=== PATIENT | female | born 1990 | race Caucasian/White ===

== ENCOUNTER 2016-05-02 23:46 | Emergency (ER) | payer SELFPAY ==
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
== END 2016-05-03 00:55 | disposition home or self-care (01) ==
LOC: ER 23:46
DX: S00.81XA Abrasion of other part of head, initial encounter (principal); X99.0XXA Assault by sharp glass, initial encounter; Y92.410 Unspecified street and highway as the place of occurrence of the external cause
CPT/HCPCS: 99283

== ENCOUNTER 2016-05-18 17:55 | Inpatient (IN) | payer MEDICAID ==
[2016-05-18] MEDS ORDERED: HYDROMORPHONE HCL 1 MG/ML CPJ IVP ONE (19:45)
[2016-05-18] MEDS ORDERED: ONDANSETRON HCL IV 4 MG/2 ML VIAL IVP ONE (19:45)
--- NOTE | 2016-05-18 20:03 | Emergency Department Record ---
History of Present Illness - General Chief complaint: Abscess Stated complaint: FACE SWOLLEN/TONGUE SWELLING Time Seen by Provider: 05/18/16 19:39 Source: Patient Mode of Arrival: Ambulatory Limitations: No limitations - History of Present Illness Initial comments: pt states she has some bad teeth and has been chewing on her cheek and now her cheek has swelling and is tender. complaint: Abscess/boil Onset/Timin -: Hour(s) Location: Face Severity: Mild Severity scale (1-10): >10 Consistency: Constant Improves with: Other Worsens with: Other Context: Other Associated symptoms: Denies other symptoms Treatments Prior to Arrival: NSAID - Related Data Home Medications Medication Instructions Recorded Confirmed Last Taken No Home Med [NO HOME MEDS] 05/02/16 05/02/16 Unknown Allergies Allergy/AdvReac Type Severity Reaction Status Date / Time No Known Drug Allergies Allergy Verified 08/04/13 22:14 Travel Screening - Travel/Exposure Within Last 30 Days Have you traveled within the last 30 days?: No - Travel/Exposure Within Last Year Have you traveled outside the [place] in the last year?: No - Additonal Travel Details Have you been exposed to anyone with a communicable illness?: No - Travel Symptoms Symptom Screening: None Review of Systems Reviewed: No additional complaints except as noted below Constitutional: Reports: As per HPI. Denies: Chills, Fever, Malaise, Night sweats, Weakness, Weight change Eyes: Reports: As per HPI. Denies: Eye discharge, Eye pain, Photophobia, Vision change ENT: Reports: As per HPI. Denies: Congestion, Dental pain, Ear pain, Epistaxis , Hearing loss, Throat pain Respiratory: Reports: As per HPI. Denies: Cough, Dyspnea, Hemoptysis, Stridor, Wheezes Cardiovascular: Reports: As per HPI. Denies: Arrhythmia, Chest pain, Dyspnea on exertion, Edema, Murmurs, Orthopnea, Palpitations, Paroxysmal nocturnal dyspnea, Rheumatic Fever, Syncope Endocrine: Reports: As per HPI. Denies: Fatigue, Heat or cold intolerance, Polydipsia, Polyuria Gastrointestinal: Reports: As per HPI. Denies: Abdominal pain, Constipation, Diarrhea, Hematemesis, Hematochezia, Melena, Nausea, Vomiting Genitourinary: Reports: As per HPI. Denies: Abnormal menses, Discharge, Dyspareunia, Dysuria, Frequency, Hematuria, Incontinence, Retention, Urgency Musculoskeletal: Reports: As per HPI. Denies: Arthralgia, Back pain, Gout, Joint swelling, Myalgia, Neck pain Skin: Reports: As per HPI. Denies: Bruising, Change in color, Change in hair/ nails, Lesions, Pruritus, Rash Neurological: Reports: As per HPI. Denies: Abnormal gait, Confusion, Headache, Numbness, Paresthesias, Seizure, Tingling, Tremors, Vertigo, Weakness Psychiatric: Reports: As per HPI. Denies: Anxiety, Auditory hallucinations, Depression, Homicidal thoughts, Suicidal thoughts, Visual hallucinations Hematological/Lymphatic: Reports: As per HPI. Denies: Anemia, Blood Clots, Easy bleeding, Easy bruising, Swollen glands Past Medical History - SOCIAL HISTORY Smoking Status: Current every day smoker Alcohol Use: None Drug Use: None - RESPIRATORY Hx Respiratory Disorders: No - CARDIOVASCULAR Hx Cardio Disorders: No - NEURO Hx Neuro Disorders: No - GI Hx GI Disorders: No - Hx Genitourinary Disorders: No - ENDOCRINE Hx Endocrine Disorders: No - MUSCULOSKELETAL Hx Musculoskeletal Disorders: No - PSYCH Hx Psych Problems: No - HEMATOLOGY/ONCOLOGY Hx Hematology/Oncology Disorders: No Family Medical History Any Significant Family History?: No Hx Liver Disease: Grandparents Physical Exam - General General Appearance: Alert, Oriented x3, Cooperative, Mild distress - Head Head exam: Normal inspection - Eye Eye exam: Normal appearance, PERRL, EOMI Pupils: Normal accommodation - ENT ENT exam: Normal exam, Mucous membranes moist, Normal external ear exam, Normal orophraynx, TM's normal bilaterally Ear exam: Normal external inspection. negative: External canal tenderness Nasal Exam: Normal inspection. negative: Discharge, Sinus tenderness Mouth exam: Normal external inspection, Tongue normal, Trismus, Other (swelling of l cheek w erythema and tenderness. inside of cheek reveals large area where pt has chewed on it.) Teeth exam: Normal inspection. negative: Dental caries Throat exam: Normal inspection. negative: Tonsillar erythema, Tonsillar exudate - Neck Neck exam: Normal inspection, Full ROM. negative: Tenderness - Respiratory Respiratory exam: Normal lung sounds bilaterally. negative: Respiratory distress - Cardiovascular Cardiovascular Exam: Normal rhythm, Normal heart sounds, Tachycardia - GI/Abdominal GI/Abdominal exam: Soft, Normal bowel sounds. negative: Tenderness - Rectal Rectal exam: Deferred - exam: Deferred - Extremities Extremities exam: Normal inspection, Full ROM, Normal capillary refill. negative: Tenderness - Back Back exam: Reports: Normal inspection, Full ROM. Denies: Muscle spasm, Rash noted, Tenderness - Neurological Neurological exam: Alert, CN II-XII intact, Normal gait, Oriented X3 - Psychiatric Psychiatric exam: Normal affect, Normal mood - Skin Skin exam: Dry, Intact, Normal color, Warm Course Vital Signs 05/18/16 19:04 Temperature 100.6 F H Pulse Rate 117 H Respiratory 20 Rate Blood Pressure 115/74 Pulse Ox 98 Medical Decision Making - Lab Data Result diagrams: 05/18/16 20:00 05/18/16 20:00 Disposition Disposition: Admit Clinical Impression: Cellulitis and abscess of face Disposition: Still a Patient at [facility] Decision to Admit: Admit from ER Decision to Admit Date: 05/18/16 Decision to Admit Time: 21:11 Forms: Patient Portal Access
[2016-05-18 20:06] LABS: HEMATOCRIT 34.7 % (35.0-47.0); HEMOGLOBIN 11.5 gm/dl (11.6-16.0); MEAN CORPUSCULAR HGB CONC 33.1 g/dl (32-36); MEAN PLATELET VOLUME 10.5 fl (7.4-10.4); PLATELET COUNT 286 K/uL (130-400); RED BLOOD COUNT 4.08 M/uL (3.80-5.40); RED CELL DISTRIBUTION WIDTH 14.4 % (11.5-14.5)
[2016-05-18 20:07] LABS: MEAN CORPUSCULAR HEMOGLOBIN 28.1 pg (27-33); URINE APPEARANCE CLEAR; URINE BILIRUBIN NEGATIVE (NEGATIVE); URINE BLOOD NEGATIVE (NEGATIVE); URINE COLOR YELLOW; URINE GLUCOSE (UA) NEGATIVE (NEGATIVE); URINE KETONE 15 mg/dL (NEGATIVE); URINE LEUKOCYTE ESTERASE NEGATIVE (NEGATIVE); URINE NITRITE NEGATIVE (NEGATIVE); URINE PROTEIN NEGATIVE (NEGATIVE)
[2016-05-18 20:09] LABS: HCG,QUALITATIVE URINE NEGATIVE (NEGATIVE)
[2016-05-18 20:17] LABS: ANION GAP 8.5 (7-16); BLOOD UREA NITROGEN 5 mg/dL (7-17); CARBON DIOXIDE 32.5 mmol/L (22-30); CREATININE 0.6 mg/dL (0.52-1.04); EST GLOMERULAR FILTRATION RATE > 60 ml/min; GLUCOSE,RANDOM 110 mg/dL (70-110)
[2016-05-18 20:18] LABS: URINE BACTERIA FEW; URINE RBC 0 - 2 (NONE SEEN); URINE WBC 0 - 2 (0-2/hpf)
[2016-05-18] MEDS ORDERED: KETOROLAC 30 MG/ML VIAL IVP ONE (20:21)
[2016-05-18] MEDS ORDERED: 0.9 % SODIUM CHLORIDE 1,000 ML BAG IV ONE (20:21)
[2016-05-18] MEDS ORDERED: POTASSIUM CHLORIDE 20 MEQ TABLET PO ONE (20:34)
[2016-05-18] MEDS ORDERED: CLINDAMYCIN 600MG/50ML PREMIX 600 MG in DEXTROSE 1 BAG IV ONE (20:38)
[2016-05-18 21:04] LABS: INFLUENZA A NEGATIVE (NEGATIVE); INFLUENZA B NEGATIVE (NEGATIVE)
[2016-05-18] MEDS ORDERED: ACETAMINOPHEN 500 MG TABLET PO PRN (21:44)
[2016-05-18] MEDS ORDERED: ONDANSETRON HCL IV 4 MG/2 ML VIAL IVP PRN (21:44)
[2016-05-18] MEDS: CLINDAMYCIN 600MG/50ML PREMIX 600 MG in DEXTROSE 1 BAG IV SCH (21:54)
[2016-05-19] MEDS: HYDROMORPHONE HCL 1 MG/ML CPJ IVP PRN ×2 (01:25→06:40)
[2016-05-19] MEDS: CLINDAMYCIN 600MG/50ML PREMIX 600 MG in DEXTROSE 1 BAG IV SCH ×3 (05:49→21:57)
--- NOTE | 2016-05-19 07:42 | History & Physical ---
History of Present Illness - Date of Service Date of Service for History & Physical: 05/19/16 - History of Present Illness Admitting Diagnosis: cellulitis of face w elev temp and wbc History of Present Illness: 26yo female with CC of right sided facial swelling and pain. She has no significant medical history and not currently taking any medications on a daily basis. She is a current, everyday smoker. Patient presented to the ED with 2 day history of right sided facial swelling, pain and redness. She had reportedly been chewing her cheek as a nervous habit. She said the pain became worse as did the swelling so came to the ED. While in the ED, Patient was febrile with temp of 101.5 and had WBC count of 14. She had a negative influenza screen. no upper respiratory symptoms. She had blood cultures taken in the ED. Started on IV clindamycin and admitted for facial cellulitis. 05/19/16- Patient states pain is about the same, maybe slightly improved from yesterday. Feels like her nodes are a little more inflamed. redness has improved. Has some soreness in her throat and cheek. no difficulty swallowing. Feels like the magic mouthwash helped with the pain. does not like the dilaudid as it is making her feel out of it. usually takes ibuprofen 800mg for pain at home. no fevers, chills or nausea overnight. Travel Screening - Travel/Exposure Within Last 30 Days Have you traveled within the last 30 days?: No - Travel/Exposure Within Last Year Have you traveled outside the [place] in the last year?: No - Additonal Travel Details Have you been exposed to anyone with a communicable illness?: No - Travel Symptoms Symptom Screening: Fever (Subjective) Review of Systems Constitutional: Reports: As per HPI. Denies: Chills, Fever, Malaise, Night sweats, Weakness, Weight change Eyes: Reports: As per HPI. Denies: Eye discharge, Eye pain, Photophobia, Vision change ENT: Reports: As per HPI. Denies: Congestion, Dental pain, Ear pain, Epistaxis , Hearing loss, Throat pain Respiratory: Reports: As per HPI. Denies: Cough, Dyspnea, Hemoptysis, Stridor, Wheezes Cardiovascular: Reports: As per HPI. Denies: Arrhythmia, Chest pain, Dyspnea on exertion, Edema, Murmurs, Orthopnea, Palpitations, Paroxysmal nocturnal dyspnea, Rheumatic Fever, Syncope Endocrine: Reports: As per HPI. Denies: Fatigue, Heat or cold intolerance, Polydipsia, Polyuria Gastrointestinal: Reports: As per HPI. Denies: Abdominal pain, Constipation, Diarrhea, Hematemesis, Hematochezia, Melena, Nausea, Vomiting Genitourinary: Reports: As per HPI. Denies: Abnormal menses, Discharge, Dyspareunia, Dysuria, Frequency, Hematuria, Incontinence, Retention, Urgency Musculoskeletal: Reports: As per HPI. Denies: Arthralgia, Back pain, Gout, Joint swelling, Myalgia, Neck pain Skin: Reports: As per HPI. Denies: Bruising, Change in color, Change in hair/ nails, Lesions, Pruritus, Rash Neurological: Reports: As per HPI. Denies: Abnormal gait, Confusion, Headache, Numbness, Paresthesias, Seizure, Tingling, Tremors, Vertigo, Weakness Psychiatric: Reports: As per HPI. Denies: Anxiety, Auditory hallucinations, Depression, Homicidal thoughts, Suicidal thoughts, Visual hallucinations Hematological/Lymphatic: Reports: As per HPI. Denies: Anemia, Blood Clots, Easy bleeding, Easy bruising, Swollen glands Past Medical History - SOCIAL HISTORY Smoking Status: Current every day smoker Alcohol Use: None Drug Use: None - RESPIRATORY Hx Respiratory Disorders: No - CARDIOVASCULAR Hx Cardio Disorders: No - NEURO Hx Neuro Disorders: No - GI Hx GI Disorders: No - Hx Genitourinary Disorders: No - ENDOCRINE Hx Endocrine Disorders: No - MUSCULOSKELETAL Hx Musculoskeletal Disorders: No - PSYCH Hx Psych Problems: No - HEMATOLOGY/ONCOLOGY Hx Hematology/Oncology Disorders: No Family Medical History Any Significant Family History?: No Hx Liver Disease: Grandparents H&P Meds/Allergies - Allergies Allergies: Allergies Allergy/AdvReac Type Severity Reaction Status Date / Time No Known Drug Allergies Allergy Verified 08/04/13 22:14 - Home Medications Home Medications Medication Instructions Recorded Confirmed Last Taken No Home Med [NO HOME MEDS] 05/02/16 05/02/16 Unknown - Active Medications Active Medications: Current Medications Acetaminophen (Tylenol 500mg Tab) 1,000 mg PO Q6H PRN PRN Reason: PAIN/TEMP Last Admin: 05/19/16 01:23 Dose: 1,000 mg Hydromorphone HCl (Dilaudid) 0.5 mg IVP Q4H PRN PRN Reason: Pain - Moderate (5-7) Last Admin: 05/19/16 06:40 Dose: 0.5 mg Clindamycin Phosphate 600 mg/ (Glucose) 50 mls @ 50 mls/30 min IV Q8H THAIS Last Admin: 05/19/16 05:49 Dose: 50 mls/30 min Ondansetron HCl (Zofran) 4 mg IVP Q8H PRN PRN Reason: NAUSEA Last Admin: 05/19/16 01:29 Dose: 4 mg Physical Exam - Vital Signs Vital Signs: Vital Signs - Last 24 Hrs Temp Pulse Resp BP Pulse Ox 05/19/16 01:46 97.8 F 86 16 111/56 98 05/18/16 22:00 97.8 F 102 H 16 90/44 97 - General General Appearance: Alert, Oriented x3, Cooperative, No acute distress Limitations: No limitations - Head Head exam: Normal inspection - Eye Eye exam: Normal appearance, PERRL, EOMI Pupils: Normal accommodation - ENT ENT exam: Normal exam, Mucous membranes moist, Normal external ear exam, Normal orophraynx, TM's normal bilaterally Ear exam: Normal external inspection. negative: External canal tenderness Nasal Exam: Normal inspection. negative: Discharge, Sinus tenderness Mouth exam: Normal external inspection, Tongue normal, Trismus, Other (swelling of l cheek w erythema and tenderness. inside of cheek reveals large area where pt has chewed on it.) Teeth exam: Normal inspection. negative: Dental caries Throat exam: Normal inspection. negative: Tonsillar erythema, Tonsillar exudate - Neck Neck exam: Normal inspection, Full ROM. negative: Tenderness - Respiratory Respiratory exam: Normal lung sounds bilaterally. negative: Respiratory distress - Cardiovascular Cardiovascular Exam: Regular rate, Normal rhythm, Normal heart sounds - GI/Abdominal GI/Abdominal exam: Soft, Normal bowel sounds. negative: Tenderness - Rectal Rectal exam: Deferred - exam: Deferred - Extremities Extremities exam: Normal inspection, Full ROM, Normal capillary refill. negative: Tenderness - Back Back exam: Reports: Normal inspection, Full ROM. Denies: Muscle spasm, Rash noted, Tenderness - Neurological Neurological exam: Alert, CN II-XII intact, Normal gait, Oriented X3 - Psychiatric Psychiatric exam: Normal affect, Normal mood - Skin Skin exam: Dry, Erythema (mild erythema of the outer right cheek with swelling.) , Intact, Warm Results - Labs Result Diagrams: 05/19/16 08:10 05/19/16 08:10 VTE H&P Assessment - Risk for VTE Risk for VTE: Yes Risk Level: Very Low Risk Assessment Date: 05/19/16 Risk Assessment Time: 12:19 VTE Orders Placed or Will Be Placed: Yes Plan - Detailed Diagnosis and Plan (1) Cellulitis and abscess of face Current Visit: Yes Status: Acute Base Code: L03.211 - CELLULITIS OF FACE; L02.01 - CUTANEOUS ABSCESS OF FACE Comment: 05/19/16- erythema slightly improved. Patient is no longer febrile and WBC count down to 6.6 from 14 at admission. Blood culture pending. No evidence of airway compromise. -will get CT soft tissue neck with contrast to evaluate for abscess -continue clindamycin 600mg IV q8H -repeat labs qam -vitals q8H (2) Full code status Current Visit: Yes Status: Acute Base Code: Z78.9 - OTHER SPECIFIED HEALTH STATUS Comment: 05/19/16- patient is full code (3) DVT prophylaxis Current Visit: Yes Status: Acute Base Code: [id number] - Comment: 05/19/16- patient is low risk for DVT -will encourage adequate ambulation -add SCD's while in bed
[2016-05-19 08:21] LABS: BASO % 0.5 % (0-6); EOS % 1.4 % (0-6); GRAN % 70.2 % (47-80); HEMATOCRIT 32.4 % (35.0-47.0); HEMOGLOBIN 10.6 gm/dl (11.6-16.0); LYMPH % 20.1 % (16-45); MEAN CELL VOLUME 86.9 fl (81-97); MEAN CORPUSCULAR HEMOGLOBIN 28.4 pg (27-33); MEAN CORPUSCULAR HGB CONC 32.7 g/dl (32-36); MEAN PLATELET VOLUME 10.8 fl (7.4-10.4); MONO % 7.8 % (0-9); PLATELET COUNT 243 K/uL (130-400); RED BLOOD COUNT 3.73 M/uL (3.80-5.40); RED CELL DISTRIBUTION WIDTH 14.7 % (11.5-14.5); WHITE BLOOD COUNT W/O DIFF 6.6 K/uL (4.2-12.2)
[2016-05-19 08:27] LABS: ANION GAP 7.3 (7-16); BLOOD UREA NITROGEN 12 mg/dL (7-17); CARBON DIOXIDE 30.7 mmol/L (22-30); CREATININE 0.6 mg/dL (0.52-1.04); EST GLOMERULAR FILTRATION RATE > 60 ml/min; GLUCOSE,RANDOM 102 mg/dL (70-110)
[2016-05-19] MEDS ORDERED: IBUPROFEN 400 MG TABLET PO ONE (09:17)
[2016-05-19] MEDS ORDERED: AL HYDROX/MAG HYDROX 30ML UD PO ONE (10:00)
[2016-05-19] MEDS ORDERED: DIPHENHYDRAMINE ELIXIR 25MG/10ML UD PO ONE (10:00)
[2016-05-19] MEDS ORDERED: LIDOCAINE VISC 2% 200MG/10ML UD MM ONE (10:00)
[2016-05-19] MEDS ORDERED: HYDROCODONE/APAP 5/325MG TABLET PO PRN (16:31)
[2016-05-19] MEDS ORDERED: IBUPROFEN 400 MG TABLET PO PRN (16:37)
[2016-05-19] MEDS: AL HYDROX/MAG HYDROX 30ML UD PO PRN ×2 (17:56→21:59)
[2016-05-19] MEDS: LIDOCAINE VISC 2% 200MG/10ML UD MM PRN ×2 (17:56→21:59)
[2016-05-19] MEDS: DIPHENHYDRAMINE ELIXIR 25MG/10ML UD PO PRN ×2 (17:56→21:59)
[2016-05-19] MEDS ORDERED: DIPHENHYDRAMINE HCL 25 MG CAPSULE PO PRN (22:24)
[2016-05-20] MEDS: CLINDAMYCIN 600MG/50ML PREMIX 600 MG in DEXTROSE 1 BAG IV SCH (05:51)
--- NOTE | 2016-05-20 07:27 | CT SCAN REPORT ---
EXAM: SOFT TISSUE NECK CT SCAN WITH CONTRAST HISTORY: FACIAL CELLULITIS, SWELLING, POSSIBLE ABSCESS LEFT CHEEK. TECHNIQUE: Axial CT scan of the neck was performed following the intravenous administration of 100 ml of Omnipaque 300 as the IV contrast. Comparison: No prior neck CT with which to compare. FINDINGS: There is moderate membrane thickening inferiorly in both frontal sinuses. Prominent membrane thickening bilaterally in the ethmoids. Probable air fluid level in the left sphenoid sinus. Air fluid levels in both maxillary sinuses. Clinical correlation as to acute sinusitis suggested. The mastoids and middle ear cavities appear well aerated. No abnormal air collection seen within either orbit. Small nodule in the right lobe of the thyroid only about 3.6 mm in size, however , there is probably a larger nodule in the lower pole of the left lobe appearing somewhat heterogeneous containing some calcification, probably measuring about 1.7 cm in size. Correlation with physical exam suggested and follow-up thyroid ultrasound might be useful. The proximal left common carotid artery is just posterior to this apparent calcified lower pole left lobe thyroid nodule. There is extensive dental disease with advanced dental caries involving numerous maxillary and mandibular teeth bilaterally. Dental consultation suggested. This extensive dental disease may be the cause of the clinical face swelling described in the history. There is somewhat greater hazy density in the subcutaneous tissues overlying the right side of the mandible compared to the left although by history the left side has greater swelling. I see no definite soft tissue abscess in the soft tissues on either side overlying the mandible or maxilla. The lung apices appear clear. The epiglottis is of normal size. No prevertebral soft tissue swelling evident. Numerous mildly prominent cervical nodes are probably reactive in nature. Cristian bullosa formation involving the left middle turbinate and deviation of the nasal septum to the right. IMPRESSION: 1. EXTENSIVE DENTAL DISEASE WITH MARKED DENTAL CARIES INVOLVING SEVERAL MAXILLARY AND MANDIBULAR TEETH BILATERALLY. THERE ARE PROBABLY PERIAPICAL ABSCESSES ASSOCIATED WITH SOME OF THESE EXTENSIVE DENTAL CARIES. 2. HAZY INCREASED DENSITY IN THE SUBCUTANEOUS TISSUES OVERLYING THE MANDIBLE BILATERALLY, RIGHT GREATER THAN LEFT. NO DEFINITE DISCREET SOFT TISSUE ABSCESS IDENTIFIED. 3. AIR FLUID LEVELS IN BOTH MAXILLARY ANTRA AND PROBABLY IN THE LEFT SIDE OF THE SPHENOID SINUS. MODERATE MEMBRANE THICKENING IN THE ETHMOIDS AND INFERIORLY IN THE FRONTAL SINUSES. 4. LARGE PARTIALLY CALCIFIED NODULE LOWER POLE LEFT LOBE OF THE THYROID. TINY NODULE RIGHT LOBE OF THE THYROID. 5. CRISTIAN BULLOSA FORMATION LEFT MIDDLE TURBINATE AND DEVIATION OF THE NASAL SEPTUM TO THE RIGHT. JOB NUMBER: [id number] MTDD
[2016-05-20 09:06] LABS: BASO % 0.7 % (0-6); EOS % 3.3 % (0-6); GRAN % 58.4 % (47-80); HEMATOCRIT 31.3 % (35.0-47.0); HEMOGLOBIN 10.1 gm/dl (11.6-16.0); LYMPH % 25.6 % (16-45); MEAN CELL VOLUME 87.2 fl (81-97); MEAN CORPUSCULAR HEMOGLOBIN 28.1 pg (27-33); MEAN CORPUSCULAR HGB CONC 32.3 g/dl (32-36); MEAN PLATELET VOLUME 10.7 fl (7.4-10.4); PLATELET COUNT 262 K/uL (130-400); RED BLOOD COUNT 3.59 M/uL (3.80-5.40); RED CELL DISTRIBUTION WIDTH 14.7 % (11.5-14.5); WHITE BLOOD COUNT W/O DIFF 4.3 K/uL (4.2-12.2)
[2016-05-20] MEDS: LIDOCAINE VISC 2% 200MG/10ML UD MM PRN (09:07)
[2016-05-20 09:16] LABS: ANION GAP 4.8 (7-16); BLOOD UREA NITROGEN 9 mg/dL (7-17); CARBON DIOXIDE 31.2 mmol/L (22-30); CREATININE 0.7 mg/dL (0.52-1.04); EST GLOMERULAR FILTRATION RATE > 60 ml/min; GLUCOSE,RANDOM 90 mg/dL (70-110)
--- NOTE | 2016-05-20 11:22 | Discharge Summary ---
Providers Discharge Summary Date: 05/20/16 Date of admission: 05/18/16 21:39 Expected Date of Discharge: 05/20/16 Attending physician: SMILEY GU Physical Exam - Vital Signs Vital Signs: Vital Signs - Last 24 Hrs Temp Pulse Resp BP Pulse Ox 05/20/16 06:00 97.6 F 75 18 105/63 99 05/19/16 23:40 97.6 F 71 18 93/51 98 05/19/16 20:10 97.6 F 82 18 94/58 98 05/19/16 17:55 97.7 F 82 18 100/57 96 05/19/16 14:00 97.7 F 77 18 106/68 98 - General General Appearance: Alert, Oriented x3, Cooperative, No acute distress Limitations: No limitations - Head Head exam: Normal inspection - Eye Eye exam: Normal appearance, PERRL, EOMI Pupils: Normal accommodation - ENT ENT exam: Normal exam, Mucous membranes moist, Normal external ear exam, Normal orophraynx, TM's normal bilaterally Ear exam: Normal external inspection. negative: External canal tenderness Nasal Exam: Normal inspection. negative: Discharge, Sinus tenderness Mouth exam: Normal external inspection, Tongue normal, Trismus, Other (swelling of l cheek w erythema and tenderness. inside of cheek reveals large area where pt has chewed on it.) Teeth exam: Normal inspection. negative: Dental caries Throat exam: Normal inspection. negative: Tonsillar erythema, Tonsillar exudate - Neck Neck exam: Normal inspection, Full ROM. negative: Tenderness - Respiratory Respiratory exam: Normal lung sounds bilaterally. negative: Respiratory distress - Cardiovascular Cardiovascular Exam: Regular rate, Normal rhythm, Normal heart sounds - GI/Abdominal GI/Abdominal exam: Soft, Normal bowel sounds. negative: Tenderness - Rectal Rectal exam: Deferred - exam: Deferred - Extremities Extremities exam: Normal inspection, Full ROM, Normal capillary refill. negative: Tenderness - Back Back exam: Reports: Normal inspection, Full ROM. Denies: Muscle spasm, Rash noted, Tenderness - Neurological Neurological exam: Alert, CN II-XII intact, Normal gait, Oriented X3 - Psychiatric Psychiatric exam: Normal affect, Normal mood - Skin Skin exam: Dry, Erythema (mild erythema of the outer right cheek with swelling.) , Intact, Warm Hospitalization - Hospitalization Admission Diagnosis: cellulitis of face w elev temp and wbc - Problem List/Discharge Diagnosis (1) Cellulitis and abscess of face Current Visit: Yes Status: Acute Base Code: L03.211 - CELLULITIS OF FACE; L02.01 - CUTANEOUS ABSCESS OF FACE Comment: 05/20/16- significantly improved. Complete resolution of erythema and swelling continues to resolve. CT soft tissue showed cellulitis without soft tissue abscess. there was extensive dental disease with small periapical abscesses present. Patient remains afebrile and WBC count down to 4.3 from 14 at admission. Blood culture still pending. No evidence of airway compromise. -transition to oral clindamycin 300mg po QID for 7 more days, total of 10 day course -social work has patient set up with a primary care physician. She has appointment with Dr. Ortega at [facility] on June 10. -referral to dental clinic in [place] sent yesterday. Will ensure patient has their number as well to call and be scheduled for follow up appointment. Explained she needs to try and get scheduled soon so that they may be able to do dental work following her antibiotics. -continue ibuprofen 800mg po up to 3 times daily as needed for pain -continue magic mouthwash 10ml swish and spit q4H prn -return to ED for any fevers, worsening pain, swelling, drainage, or difficulty breathing. (2) Full code status Current Visit: Yes Status: Acute Base Code: Z78.9 - OTHER SPECIFIED HEALTH STATUS Comment: 05/20/16- patient is full code (3) DVT prophylaxis Current Visit: Yes Status: Acute Base Code: [id number] - Comment: 05/20/16- patient is low risk for DVT -encouraged ambulation and SCD's used while in bed - Hospitalization Course Disposition: Home, Self-Care Hospital Course: 26yo female with CC of right sided facial swelling and pain. She has no significant medical history and not currently taking any medications on a daily basis. She is a current, everyday smoker. Patient presented to the ED with 2 day history of right sided facial swelling, pain and redness. She had reportedly been chewing her cheek as a nervous habit. She said the pain became worse as did the swelling so came to the ED. While in the ED, Patient was febrile with temp of 101.5 and had WBC count of 14. She had a negative influenza screen. no upper respiratory symptoms. She had blood cultures taken in the ED. Started on IV clindamycin and admitted for facial cellulitis. 05/19/16- Patient states pain is about the same, maybe slightly improved from yesterday. Feels like her nodes are a little more inflamed. redness has improved. Has some soreness in her throat and cheek. no difficulty swallowing. Feels like the magic mouthwash helped with the pain. does not like the dilaudid as it is making her feel out of it. usually takes ibuprofen 800mg for pain at home. no fevers, chills or nausea overnight. 05/20/16- Patient reports continued improvement in the swelling of her right cheek and pain. Says her pain was doing very well yesterday afternoon but she did wake up with some increased pain this morning. Thinks she was chewing on her cheek again in her sleep. Overall feels the pain is well controlled with ibuprofen and magic mouthwash. No fevers, chills, nausea. no difficulty swallowing, neck pain or difficulty breathing. She is feeling ready to go home. not established with a pcp but social work is aware and will be getting her set up. Procedures: Imaging and X-Rays 05/19/16 12:03 SOFT TISSUE NECK W CONTRAST [CT] Stat Abnormal Labs: Abnormal Lab Results 05/19/16 05/19/16 05/20/16 Range/Units 08:10 08:10 08:58 RBC 3.73 L 3.59 L (3.80-5.40) M/uL Hgb 10.6 L 10.1 L (11.6-16.0) gm/dl Hct 32.4 L 31.3 L (35.0-47.0) % RDW 14.7 H 14.7 H (11.5-14.5) % MPV 10.8 H 10.7 H (7.4-10.4) fl Monocytes % 12.0 H (0-9) % Carbon Dioxide 30.7 H (22-30) mmol/L Anion Gap (7-16) Calcium 8.0 L (8.5-10.1) mg/dL 05/20/16 Range/Units 08:58 RBC (3.80-5.40) M/uL Hgb (11.6-16.0) gm/dl Hct (35.0-47.0) % RDW (11.5-14.5) % MPV (7.4-10.4) fl Monocytes % (0-9) % Carbon Dioxide 31.2 H (22-30) mmol/L Anion Gap 4.8 L (7-16) Calcium 8.3 L (8.5-10.1) mg/dL Condition at Discharge: (2) Stable Discharge Medications - Discharge Medications Prescriptions: Clindamycin HCl [Cleocin HCl] 300 mg PO QID #28 capsule Ibuprofen [Motrin] 800 mg PO Q8H PRN #60 tablet PRN Reason: Pain - General Home Medications: Ambulatory Orders Clindamycin HCl [Cleocin HCl] 300 mg PO QID #28 capsule 05/20/16 [Last Taken Unknown] Ibuprofen [Motrin] 800 mg PO Q8H PRN #60 tablet 05/20/16 [Last Taken Unknown] Discharge Plan - Discharge Instructions Activity at Discharge: Resume Usual Activities As Tolerated Diet at Discharge: Advance to Usual Diet Additional Instructions: Follow up with Dr. Alec Ortega June 06 at 2:15pm at the [facility] in [place] Continue Clindamycin 300mg PO Q6H for 7 more days May use the ibuprofen 800mg po up to three times daily as needed for severe pain May use the mouthwash 10ml swish and spit up to 4 times daily as needed Please return to ED at any time for fever, nausea, worsening pain/swelling, or any difficulty breathing
[2016-05-20] MEDS ORDERED: CLINDAMYCIN 150 MG CAP PO ONE (12:54)
== END 2016-05-20 14:44 | disposition home or self-care (01) | DRG 603 ==
LOC: ER 17:55 → OBSVTOIN 21:39 → MEDSURG 21:39
PROVIDERS: ADMIT Family Medicine; ATTEND Family Medicine
DX: L03.211 Cellulitis of face (principal); F17.200 Nicotine dependence, unspecified, uncomplicated
CPT/HCPCS: 70491; 80048; 81001; 81025; 85025; 85027; 87040; 87400; 96374; 99223; 99239; 99285; J1170; J1885; J2405; J7030